=== PATIENT | female | born 1975 | race Caucasian/White ===

== ENCOUNTER 2019-05-11 09:40 | Emergency (ER) | payer BC, OTHER ==
[~2019-05-11] VITALS: Wt 70.0 kg
[~2019-05-11 09:40] MED LIST: CARB15DR3 LEFT EYE; LORA5TAB4 PO
[2019-05-11 09:44] VITALS: BP 103/66; PULSE 80; RESP 18
== END 2019-05-11 10:46 | disposition home or self-care (01) ==
LOC: FTE 09:40
DX: H10.12 Acute atopic conjunctivitis, left eye (principal)
CPT/HCPCS: 99282